=== PATIENT | male | born 1945 | race Caucasian/White ===

== ENCOUNTER 2019-03-18 | Emergency (ER) | payer MEDICARE, OTHER ==
[~2019-03-18] MED LIST: AMLODIPINE5 MG PO; DIDN'T BRING MEDS; LASIX 40 MG40 MG/TAB PO; LEVOTHYROXIN50 MCG PO; LISINOPRIL10 MG PO; METHADONE10 M1 PO; SENNA-TABS8.6 MG PO; SW OMEPRAZOLE20 MG PO; ZYLOPRIM300 MG PO
--- NOTE | 2019-03-18 14:35 | NUR ---
PATIENT TO ROOM VIA WHEELCHIAR. ASSISTED ONTO STRETCHER.
--- NOTE | 2019-03-18 14:50 | NUR ---
PATIENT REPORTS [facility]. NO REDNESS OR ECCHYMOSIS NOTED. ABRASION NOTED TO RIGHT KNEE. PATIENT ALERT AND ORIENTED X3.
--- NOTE | 2019-03-18 15:30 | NUR ---
IV SITE STARTED TO LFA #20, BLOOD AND BLOOD CULTURES OBTAINED. NOTED TO HAVE AREA OF MACERATED SKIN TO PLANTAR OF LEFT FOOT AND OPEN WOUND TO LEFT FOOT. WOUND CULTURE OBTAINED. LAB AT BEDSIDE TO COLLECT SECOND SET OF BLOOD CULTURES.
[2019-03-18 16:05] LABS: HEMATOCRIT 33.1 % (39.0-50.0); HEMOGLOBIN 11.3 g/dl (14.0-18.0); IMMATURE GRANULOCYTES 0.2 % (0.0-5.0); MEAN CELL VOLUME 90.7 fL CALC (80.0-100.0); MEAN CORPUSCULAR HGB CONC 34.1 g/L CALC (32.0-36.0); NEUT# 7.33 thou/uL (1.82-7.42); RED BLOOD COUNT 3.65 mill/uL (4.70-6.10); RED CELL DISTRI WIDTH 12.3 % (11.5-15.5)
--- NOTE | 2019-03-18 16:10 | NUR ---
PATIENT RETURNS FROM XRAY IN STABLE CONDITION.
[2019-03-18] MEDS ORDERED: LIPITOR20 MG PO (16:20)
[2019-03-18] MEDS ORDERED: GENTEAL TEARS M1 SO1 OU (16:21)
[2019-03-18] MEDS ORDERED: DIPHENHYDRAM25 MG PO (16:22)
[2019-03-18] MEDS ORDERED: [UNRECOGNIZED DRUG - OTHER] PO (16:23)
[2019-03-18] MEDS ORDERED: GABAPENTIN100 MG PO (16:24)
[2019-03-18] MEDS ORDERED: FUROSEMIDE20 MG PO (16:24)
[2019-03-18] MEDS ORDERED: GLIPIZIDE5 MG PO (16:24)
[2019-03-18] MEDS ORDERED: NOVOLOG100 UNIT/M SC (16:25)
[2019-03-18] MEDS ORDERED: METFORMIN500 MG PO (16:26)
[2019-03-18] MEDS ORDERED: PROTONIX40 M2 PO (16:27)
[2019-03-18] MEDS ORDERED: K-TABS10 MEQ PO (16:27)
--- NOTE | 2019-03-18 16:28 | NUR ---
MED REC COMPLETED WITH LIST PROVIDED BY PATIENT.
[2019-03-18 16:34] LABS: ALBUMIN 3.7 g/dL (3.2-5.0); ALKALINE PHOSPHATASE 202 u/l (38-126); ANION GAP 17 (6-22 (CALC)); BILIRUBIN, TOTAL 0.7 mg/dL (0.0-1.4); BUN 25 mg/dL (8-23); BUN/CREATININE RATIO 19 (12-20 (CALC)); CARBON DIOXIDE 27 mmol/l (22-30); CHLORIDE 97 mmol/l (95-108); CREATININE 1.3 mg/dL (0.7-1.3); GFR 54 ML/MIN (>=60 (CALC)); GFR FOR AFR.AMER. > 60 ML/MIN (>=60 (CALC)); POTASSIUM 4.8 mmol/l (3.5-5.1); SGOT/AST 30 u/l (19-48); SODIUM 136 mmol/l (137-146); TOTAL PROTEIN 6.5 g/dL (6.3-8.2)
--- NOTE | 2019-03-18 16:41 | NUR ---
CLAKR ZIEGLER AT BEDSIDE TO DISCUSS RESULTS AND PLAN OF CARE.
--- NOTE | 2019-03-18 17:10 | NUR ---
IV FLUIDS AND ANTIBIOTIC INFUSING WELL. NO SIGNS OF DISTRESS NOTED. PATIENT REPORTS NEEDING TO GO HOME TO TAKE CARE OF SICK AT HOME.
--- NOTE | 2019-03-18 18:18 | NUR ---
CLARK ZIEGLER AT BEDSIDE TO DISCUSS RESULTS AND POSSIBLE ADMIT TO TREAT WOUNDS TO LEFT FOOT.
--- NOTE | 2019-03-18 18:54 | NUR ---
REPORT GIVEN TO YOCASTA MCKEON. PATIENT IN STABLE CONDITION. CARE RELINQUISHED.
--- NOTE | 2019-03-18 19:30 | NUR ---
XRAY DONE AT BEDSIDE. PT TO BE ADMITTED. PT OKAY WITH ADMIT.
--- NOTE | 2019-03-18 20:10 | NUR ---
MYRNAAR SENT TO M/S
--- NOTE | 2019-03-18 20:41 | NUR ---
PT'S REPEAT ACCUCHECK IS 256. PT ASKED FOR MENUSO HE CAN PICK SOMETHING OUT TO EAT. INFORMED PT WE HAVE TURKEY SANDWICH HERE OR HE CAN WAIT UNTIL HE GETS UPSTAIRS THEY USUSALLY HAVE A FROZEN DINNER. PT WANTS TO WAIT.
--- NOTE | 2019-03-18 20:49 | NUR ---
OF PT CALLED UPSET THINKING PT WAS GOING HOME, GAVE PHONE TO PT TO TALK TO HIS .
--- NOTE | 2019-03-18 21:04 | NUR ---
CALLED TO PATIENT'S ROOM, WHILE HE IS ON THE PHONE WITH HIS . STATES HE NEEDS TO LEAVE AND GO HOME TO TAKE CARE OF HIS AND FEED HIS CAT. STATES HE WILL RETURN TO BE ADMITTED. AND RN NOTIFIED.
--- NOTE | 2019-03-18 21:10 | NUR ---
ALEX COMPLETED NO REACTION. PT STILL INSIST ON LEAVING AMA. PT STATES HE WILL COME BACK LATER OR TOMORROW. INFORMED PT I HAVE TO GET PAPERWORK FOR HIM TO SIGN STATING HE IS LEAVING AGAINST MEDICAL ADVICE AND THE WORSE POSSIBLE OUTCOME FROM LEAVING IS .
--- NOTE | 2019-03-18 21:22 | NUR ---
PT WOULD NOT WAIT TO SIGN AMA FORM.
== END 2019-03-18 21:22 | disposition left against medical advice (07) ==
DX: E11.621 Type 2 diabetes mellitus with foot ulcer (principal); L97.429 Non-pressure chronic ulcer of left heel and midfoot with unspecified severity; E11.65 Type 2 diabetes mellitus with hyperglycemia; S49.91XA Unspecified injury of right shoulder and upper arm, initial encounter; S89.91XA Unspecified injury of right lower leg, initial encounter; S79.911A Unspecified injury of right hip, initial encounter; S09.93XA Unspecified injury of face, initial encounter; E87.2 Acidosis; I10 Essential (primary) hypertension; E03.9 Hypothyroidism, unspecified; M35.3 Polymyalgia rheumatica; W01.0XXA Fall on same level from slipping, tripping and stumbling without subsequent striking against object, initial encounter; Z79.4 Long term (current) use of insulin; Z91.81 History of falling; Z91.19 Patient's noncompliance with other medical treatment and regimen

== ENCOUNTER 2019-03-23 | Emergency (ER) | payer MEDICARE, OTHER ==
[~2019-03-23] MED LIST changes: +DIPHENHYDRAM25 MG PO; +FUROSEMIDE20 MG PO; +GABAPENTIN100 MG PO; +GENTEAL TEARS M1 SO1 OU; +GLIPIZIDE5 MG PO; +K-TABS10 MEQ PO; +LIPITOR20 MG PO; +METFORMIN500 MG PO; +NOVOLOG100 UNIT/M SC; +PROTONIX40 M2 PO; +[UNRECOGNIZED DRUG - OTHER] PO
[2019-03-23 13:54] LABS: HEMATOCRIT 33.3 % (39.0-50.0); HEMOGLOBIN 11.2 g/dl (14.0-18.0); IMMATURE GRANULOCYTES 0.7 % (0.0-5.0); MEAN CORPUSCULAR HGB 30.6 pG CALC (26.0-32.0); MEAN CORPUSCULAR HGB CONC 33.6 g/L CALC (32.0-36.0); NEUT# 5.95 thou/uL (1.82-7.42); RED BLOOD COUNT 3.66 mill/uL (4.70-6.10); RED CELL DISTRI WIDTH 12.2 % (11.5-15.5)
[2019-03-23 13:59] LABS: ANION GAP 15 (6-22 (CALC)); BUN 20 mg/dL (8-23); BUN/CREATININE RATIO 16 (12-20 (CALC)); CARBON DIOXIDE 28 mmol/l (22-30); CHLORIDE 99 mmol/l (95-108); CREATININE 1.2 mg/dL (0.7-1.3); GFR 59 ML/MIN (>=60 (CALC)); GFR FOR AFR.AMER. > 60 ML/MIN (>=60 (CALC)); POTASSIUM 4.5 mmol/l (3.5-5.1); SODIUM 138 mmol/l (137-146)
[2019-03-23] MEDS ORDERED: CEPHALEXIN500 M1 PO (15:41)
--- NOTE | 2019-03-25 11:45 | NUR ---
ATTEMPTS TO CONTACT PATIENT HAVE WENT UNANSWERE ON 03/25/19. BOTH NUMBERS ON FILE WENT TO [facility] WITH NO ANSWERING SERVICE. WE WILL DC KEFLEX AND CALL IN BACTRIM DS BID X 5 DAYS TO THE PATIENTS PHARMACY OF CHOICE (NOT LISTED IN [facility]) WILL RE-ATTEMPT ON Wednesday03/26/19 AND SEND CERTIFIED LETTER AND RX IN NO RESPONSE.
--- NOTE | 2019-03-27 14:12 | NUR ---
Certified letter with prescription was sent to patient's residence.
== END 2019-03-23 15:53 | disposition home or self-care (01) ==
PROVIDERS: Family Medicine
DX: L03.116 Cellulitis of left lower limb (principal); S91.312A Laceration without foreign body, left foot, initial encounter; E11.621 Type 2 diabetes mellitus with foot ulcer; L97.429 Non-pressure chronic ulcer of left heel and midfoot with unspecified severity; I10 Essential (primary) hypertension; M10.9 Gout, unspecified; E03.9 Hypothyroidism, unspecified; M35.3 Polymyalgia rheumatica; W19.XXXA Unspecified fall, initial encounter; Z79.4 Long term (current) use of insulin; Z91.81 History of falling; B95.62 Methicillin resistant Staphylococcus aureus infection as the cause of diseases classified elsewhere

== ENCOUNTER 2019-05-02 | Emergency (ER) | payer MEDICARE, OTHER ==
[~2019-05-02] MED LIST changes: +CEPHALEXIN500 M1 PO
[2019-05-02 17:20] LABS: HEMATOCRIT 32.8 % (39.0-50.0); HEMOGLOBIN 11.3 g/dl (14.0-18.0); IMMATURE GRANULOCYTES 0.2 % (0.0-5.0); MEAN CELL VOLUME 89.4 fL CALC (80.0-100.0); MEAN CORPUSCULAR HGB 30.8 pG CALC (26.0-32.0); MEAN CORPUSCULAR HGB CONC 34.5 g/dL CAL (32.0-36.0); NEUT# 5.93 thou/uL (1.82-7.42); RED BLOOD COUNT 3.67 mill/uL (4.70-6.10); RED CELL DISTRI WIDTH 12.6 % (11.5-15.5)
[2019-05-02 17:31] LABS: ALBUMIN 4.2 g/dL (3.2-5.0); ALKALINE PHOSPHATASE 135 u/l (38-126); ANION GAP 15 (6-22 (CALC)); BILIRUBIN, TOTAL 0.6 mg/dL (0.0-1.4); BUN 27 mg/dL (8-23); BUN/CREATININE RATIO 20 (12-20 (CALC)); CARBON DIOXIDE 26 mmol/l (22-30); CHLORIDE 101 mmol/l (95-108); CREATININE 1.3 mg/dL (0.7-1.3); GFR 54 ML/MIN (>=60 (CALC)); GFR FOR AFR.AMER. > 60 ML/MIN (>=60 (CALC)); POTASSIUM 3.9 mmol/l (3.5-5.1); SGOT/AST 47 u/l (19-48); SODIUM 138 mmol/l (137-146); TOTAL PROTEIN 6.9 g/dL (6.3-8.2)
[2019-05-02] MEDS ORDERED: CEPHALEXIN500 M1 PO (18:05)
== END 2019-05-02 18:40 | disposition home or self-care (01) | DRG 638 ==
PROVIDERS: Emergency Medicine
DX: E11.621 Type 2 diabetes mellitus with foot ulcer (principal); E11.65 Type 2 diabetes mellitus with hyperglycemia; L97.429 Non-pressure chronic ulcer of left heel and midfoot with unspecified severity; I10 Essential (primary) hypertension; E03.9 Hypothyroidism, unspecified; M35.3 Polymyalgia rheumatica; Z79.4 Long term (current) use of insulin

== ENCOUNTER 2019-07-01 22:45 | Observation (INO) | payer MEDICARE, OTHER ==
[~2019-07-01] VITALS: Ht 177.8 cm; Wt 97.0 kg
--- NOTE | 2019-07-01 22:46 | NUR ---
BY EMS TO ROOM
--- NOTE | 2019-07-01 22:47 | NUR ---
PT. TO ROOM 9 VIA EMS WITH C/O BG 26 UPON EMS ARRIVAL TO HOME. EMS STATES THEY ADMINISTERED D10 AFTER EMS RECHECK ACCU CHECK 206. PT. IS AWAKE ALERT AND ORIENTED, SKIN WARM AND DRY TO TOUCH, COLOR WNL, RESP. EVEN AND UNLABORED.
--- NOTE | 2019-07-01 23:18 | NUR ---
ACCU CHECK 36 CR LOW MD AWARE.
--- NOTE | 2019-07-01 23:25 | NUR ---
I AMP. D 50 GIVEN PER MD ORDER. D10 STARTED AT 250 ML HR.
[2019-07-01 23:35] LABS: HEMATOCRIT 38.1 % (39.0-50.0); HEMOGLOBIN 12.9 g/dl (14.0-18.0); IMMATURE GRANULOCYTES 0.4 % (0.0-5.0); MEAN CELL VOLUME 88.2 fL CALC (80.0-100.0); MEAN CORPUSCULAR HGB 29.9 pG CALC (26.0-32.0); MEAN CORPUSCULAR HGB CONC 33.9 g/dL CAL (32.0-36.0); NEUT# 13.94 thou/uL (1.82-7.42); RED BLOOD COUNT 4.32 mill/uL (4.70-6.10); RED CELL DISTRI WIDTH 12.8 % (11.5-15.5)
[2019-07-01 23:51] LABS: ALKALINE PHOSPHATASE 98 u/l (38-126); AMYLASE 96 u/l (30-110); ANION GAP 13 (6-22 (CALC)); BILIRUBIN, TOTAL 0.6 mg/dL (0.0-1.4); BUN 12 mg/dL (8-23); BUN/CREATININE RATIO 15 (12-20 (CALC)); CARBON DIOXIDE 25 mmol/l (22-30); CHLORIDE 106 mmol/l (95-108); CREATININE 0.8 mg/dL (0.7-1.3); GFR > 60 ML/MIN (>=60 (CALC)); GFR FOR AFR.AMER. > 60 ML/MIN (>=60 (CALC)); LIPASE 373 u/l (23-300); POTASSIUM 3.3 mmol/l (3.5-5.1); SGOT/AST 53 u/l (19-48); SODIUM 140 mmol/l (137-146); TOTAL PROTEIN 6.8 g/dL (6.3-8.2)
[2019-07-02] VITALS (16 sets, daily range): BP systolic 132–204; BP diastolic 55–107
[2019-07-02 00:03] LABS: MYOGLOBIN 107 ng/mL (0 - 121)
--- NOTE | 2019-07-02 00:03 | NUR ---
ACCU CHECK RECHECK 146 MD AWARE.
--- NOTE | 2019-07-02 00:55 | NUR ---
PT. GIVEN TURKEY DINNER.
--- NOTE | 2019-07-02 01:03 | NUR ---
PT. TOOK 1 BITE OF TURKEY DINNER STATING, " I DON'T LIKE IT." "I DON'T WANT TO EAT IT."
--- NOTE | 2019-07-02 01:37 | NUR ---
PO POTASSIUM GIVEN PER MD ORDER.
--- NOTE | 2019-07-02 01:44 | NUR ---
PT. GIVEN BOWEL OF CHICKEN NOODLE SOUP, AND INSTRUCTED WHY HE MUST EAT MOST OF IT, VERBALIZED UNDERSTANDING.
--- NOTE | 2019-07-02 02:07 | NUR ---
PT. ATE 100% OF HIS CHICKEN NOODLE SOUP.
--- NOTE | 2019-07-02 02:42 | NUR ---
Admission Note Report Given to: ANUP RUST Transported by: Wheelchair X Stretcher Transported with: X Nurse Transporter X Patent IV O2 X Loan Collector Location: X ICU MS2
--- NOTE | 2019-07-02 02:45 | NUR ---
RECEIVED REPORT FROM NÉSTOR RUST.
--- NOTE | 2019-07-02 02:45 | NUR ---
PT. TAKEN TO ICU VIA STRETCHER, IVF INFUSING WELL, NO REDNESS OR EDEMA NOTED.
--- NOTE | 2019-07-02 02:55 | NUR ---
RECEIVED PT TO ICU #4 VIA STRETCHER. PT AMB WITH ASSIST TO BED. PT REFUSED TO TAKE SHORTS AND SHOES OFF. PT AAOX3.
--- NOTE | 2019-07-02 04:15 | NUR ---
PT RELATED HE HAS A WOUND TO THE BOTTOM OF HIS L FOOT THAT [facility]. PT REMOVED SHOE, PICTURE TAKEN OF WOUND.
--- NOTE | 2019-07-02 04:40 | NUR ---
LAB AT BEDSIDE. URINE SENT WITH LAB.
[2019-07-02 04:58] LABS: URINE BILIRUBIN - DIPSTICK NEGATIVE (NEGATIVE); URINE BLOOD DIPSTICK SMALL (NEGATIVE); URINE COLOR YELLOW; URINE GLUCOSE - DIPSTICK NEGATIVE (NEGATIVE); URINE KETONE NEGATIVE (NEGATIVE); URINE LEUK ESTERASE NEGATIVE (NEGATIVE); URINE PROTEIN - DIPSTICK 100 mg/dL (NEG-TRACE); URINE SPECIFIC GRAVITY 1.015; URINE UROBILINOGEN - DIPSTICK 0.2 E.U./dL (0.2)
--- NOTE | 2019-07-02 05:00 | NUR ---
PT REFUSED ELSIE WILSON.
[2019-07-02 05:01] LABS: HEMATOCRIT 34.1 % (39.0-50.0); HEMOGLOBIN 11.4 g/dl (14.0-18.0); IMMATURE GRANULOCYTES 0.2 % (0.0-5.0); MEAN CELL VOLUME 88.6 fL CALC (80.0-100.0); MEAN CORPUSCULAR HGB 29.6 pG CALC (26.0-32.0); MEAN CORPUSCULAR HGB CONC 33.4 g/dL CAL (32.0-36.0); NEUT# 7.06 thou/uL (1.82-7.42); RED BLOOD COUNT 3.85 mill/uL (4.70-6.10)
[2019-07-02 05:06] LABS: URINE NITRITE - DIPSTICK NEGATIVE (Negative)
[2019-07-02 05:08] LABS: ALBUMIN 3.4 g/dL (3.2-5.0); ALKALINE PHOSPHATASE 88 u/l (38-126); ANION GAP 10 (6-22 (CALC)); BILIRUBIN, TOTAL 0.5 mg/dL (0.0-1.4); BUN 11 mg/dL (8-23); BUN/CREATININE RATIO 14 (12-20 (CALC)); CARBON DIOXIDE 27 mmol/l (22-30); CHLORIDE 106 mmol/l (95-108); CREATININE 0.8 mg/dL (0.7-1.3); GFR > 60 ML/MIN (>=60 (CALC)); GFR FOR AFR.AMER. > 60 ML/MIN (>=60 (CALC)); POTASSIUM 3.2 mmol/l (3.5-5.1); SGOT/AST 38 u/l (19-48); SODIUM 139 mmol/l (137-146); TOTAL PROTEIN 5.9 g/dL (6.3-8.2)
[2019-07-02 05:08] LABS: URINE BACTERIA FEW hpf; URINE EPITHELIAL CELLS FEW EPI/hpf (0-FEW)
--- NOTE | 2019-07-02 06:00 | NUR ---
PT AAOX3 SKIN WARM AND DRY, ACCUCHECK 70. D10 INFUSING AT 200ML/HR. CALL JOSÉ IN REACH.
--- NOTE | 2019-07-02 06:45 | NUR ---
RECIEVED REPORT FROM YOCASTA HEBERT. ASSUMED PT CARE.
--- NOTE | 2019-07-02 06:55 | NUR ---
REPORT TO MERISSA RUST
--- NOTE | 2019-07-02 07:05 | NUR ---
PT YELLING OUT, PT REMINDED OF CALL LIGHT AND ASKED TO UTILIZE FOR FUTURE REQUEST TO THE COMFORT OF OTHER PTS. PT VERBALIZED UNDERSTANDING. PT ASSISTED WITH URINAL. THEN BACK TO BED. CALL LIGHT IN REACH. WILL MONITOR.
--- NOTE | 2019-07-02 07:30 | NUR ---
DIETARY ON UNIT, BREAKFAST TRAY SET UP, PT REFUSED EGGS. PT ASKED FOR THE EGSS TO BE REMOVED FROM PLATE, REQUEST GRANTED. CALL LIGHT IN REACH.
--- NOTE | 2019-07-02 07:45 | NUR ---
PT ALERT TO PERSON & PLACE, ABLE TO MAKE NEEDS KNOWN, RESPIRATIONS EVEN/UNLABORED, SA02@99%RA, SR ON TELEMETRY, DENIES CP, SOB OR DISTRESS AT THIS TIME. ABDOMEN DISTENDED, NON-TENEDER, LBM 5-17-20. 18G RFA INFUSING D10@200ML/HR, NO S/S OF INFILTRATION OR INFECTION NOTED AT SITE. 18G TO LFA/SL. PT REMAINS ACCUCHECK Q1H ORDERED. DRSG TO L SOLE CDI. CALL LIGHT IN REACH, WILL MONITOR.
--- NOTE | 2019-07-02 10:06 | NUR ---
ASSISTED PT WITH URINAL, 350 CLEAR YELLOW URINE OP. PT ACCU CHECK 200. NOTIFIED CLARK BATISTA. DEXTROSE 10% ON HOLD, CONTINUE ACCU CHECK Q1H. CALL LIGHT IN REACH. WILL MONITOR.
--- NOTE | 2019-07-02 11:40 | NUR ---
DR. HENRY AT BEDSIDE FOR ASSESSMENT AND TO DISCUSS PLAN OF CARE. NEW ORDERS RECIEVED.
--- NOTE | 2019-07-02 12:30 | NUR ---
PT RESTING IN BED, WATCHING TV. ATE 100% OF LUNCH. PT ASSISTED WITH URINAL, VOIDED 250ML URINE. CALL LIGHT IN REACH. WILL MONITOR.
--- NOTE | 2019-07-02 14:00 | NUR ---
PT ASSISTED WITH URINAL, VOIDED. NO S/S OF HYPOGLYCEMIA NOTED AT THIS TIME. CALL LIGHT IN REACH. WILL MONITOR.
--- NOTE | 2019-07-02 16:00 | NUR ---
PT RESTING IN BED WITH EYES CLOSED. NO DISTRESS NOTED AT THIS TIME. REMAINS SR ON TELEMETRY. CALL LIGHT IN REACH. WILL MONITOR.
--- NOTE | 2019-07-02 17:26 | NUR ---
PT UPSET, UNABLE TO USE SHARED BR DUE TO INFECTION CONTROL. ACCU CHECK 157, INSULIN REFUSED. DIETARY ON UNIT DINNER TRAY SET UP.
--- NOTE | 2019-07-02 18:00 | NUR ---
NOTIFIED DR. HENRY OF PT INCREASED B/P 204/97, HR 133.
--- NOTE | 2019-07-02 18:16 | NUR ---
DR. HENRY CALLED BACK WITH NEW ORDERS, SENT TO [facility]
--- NOTE | 2019-07-02 18:45 | NUR ---
RECEIVED REPORT FROM DAPHNIE RUST.
--- NOTE | 2019-07-02 19:05 | NUR ---
RECEIVED PT AAOX3. MEDICATED PER APR. PT RELATED HE WAS UPSET EARLIER, AND THE ROOM IS HOT. TURNED DOWN A/C, OPENED DOOR. REINFORCED WITH PT TO USE CALL LIGHT, FOR ANY NEEDS.
--- NOTE | 2019-07-02 20:00 | NUR ---
PT WATCHING TV, NO DISTRESS NOTED. CALL JOSÉ IN REACH.
--- NOTE | 2019-07-02 21:00 | NUR ---
PT UP TO SIDE OF BED TRYING TO USE URINAL, DROPPED TO FLOOR. URINE CLEANED HOUSEKEEPING AT BEDSIDE REINFORED USE OF CALL LIGHT.
--- NOTE | 2019-07-02 22:00 | NUR ---
PT LYING IN BED WATCHING TV. NO DISTRESS NOTED. NO NEEDS AT THIS TIME. CALL JOSÉ IN REACH.
[2019-07-03] VITALS (11 sets, daily range): BP systolic 149–196; BP diastolic 76–89
--- NOTE | 2019-07-03 | NUR ---
PT TURNED TV BACK ON, RELATED HE COULD NOT SLEEP AT THIS TIME. PO FLUIDS OR FOOD OFFERED, PT REFUSED. NO NEEDS AT THIS TIME. CALL JOSÉ IN REACH.
--- NOTE | 2019-07-03 02:00 | NUR ---
PT WATCHING TV. NO C/O PAIN. NO NEEDS AT THIS TIME. CALL JOSÉ IN REACH.
--- NOTE | 2019-07-03 04:00 | NUR ---
PT AWAKE AND ALERT, ENCOURAGED TO GET SOME SLEEP. NO C/O PAIN OR DISTRESS NOTED. CALL JOSÉ IN REACH.
--- NOTE | 2019-07-03 05:01 | NUR ---
LAB AT BEDSIDE.
[2019-07-03 05:17] LABS: HEMATOCRIT 33.4 % (39.0-50.0); HEMOGLOBIN 11.1 g/dl (14.0-18.0); IMMATURE GRANULOCYTES 0.1 % (0.0-5.0); MEAN CELL VOLUME 90.3 fL CALC (80.0-100.0); MEAN CORPUSCULAR HGB CONC 33.2 g/dL CAL (32.0-36.0); NEUT# 3.72 thou/uL (1.82-7.42); RED BLOOD COUNT 3.7 mill/uL (4.70-6.10); RED CELL DISTRI WIDTH 12.9 % (11.5-15.5)
[2019-07-03 05:24] LABS: ALKALINE PHOSPHATASE 96 u/l (38-126); BILIRUBIN, TOTAL 0.4 mg/dL (0.0-1.4); BUN 15 mg/dL (8-23); BUN/CREATININE RATIO 17 (12-20 (CALC)); CARBON DIOXIDE 28 mmol/l (22-30); CHLORIDE 105 mmol/l (95-108); CREATININE 0.9 mg/dL (0.7-1.3); GFR > 60 ML/MIN (>=60 (CALC)); GFR FOR AFR.AMER. > 60 ML/MIN (>=60 (CALC)); SGOT/AST 36 u/l (19-48); SODIUM 136 mmol/l (137-146); TOTAL PROTEIN 5.4 g/dL (6.3-8.2)
[2019-07-03 05:26] LABS: ANION GAP 7 (6-22 (CALC))
[2019-07-03 05:32] LABS: POTASSIUM 3.9 mmol/l (3.5-5.1)
--- NOTE | 2019-07-03 06:00 | NUR ---
OFFERED TO SET PT UP FOR SELF BATH, PT REFUSED. NO C/O PAIN OR OTHER NEEDS AT THIS TIME. CALL JOSÉ IN REACH.
--- NOTE | 2019-07-03 06:47 | NUR ---
REPORT TO MARA RUST.
--- NOTE | 2019-07-03 07:50 | NUR ---
REPORT RECEIVED FROM NIGHT RN. PT RESTING IN BED. NO DISTRESS NOTED. DENIES SOB. PT STATES HE HAS CHRONIC BACK PAIN AND TAKE PAIN MEDICATION 3 AND 1/2 TIMES A DAY. PHARMACY CALLED TO COMPLETE PATIENT MED REC. DR. DONOHUE TO BE NOTIFIED OF PATIENT HOME PAIN MEDICATION. PT SITTING UP IN BED TO EAT BREAKFAST. WILL CONTINUE TO MONITOR.
--- NOTE | 2019-07-03 08:44 | NUR ---
PT NARCOTIC REPORT RECEIVED FROM PHARMACY. PT HOME RX HYDROCODONE-ACETAMIN 10-[address] DONOHUE NOTIFIED. WILL CONTINUE TO MONITOR.
--- NOTE | 2019-07-03 09:59 | NUR ---
DR. DONOHUE AT BEDSIDE TO ASSESS PT
--- NOTE | 2019-07-03 10:05 | NUR ---
DR. DONOHUE AWARE OF PATIENT HIGH BP. BP MEDICATIONS GIVEN THIS AM. PAIN MEDS GIVEN. WILL CONTINUE TO MONITOR.
--- NOTE | 2019-07-03 10:50 | NUR ---
PT RESTING IN BED. NO DISTRESS NOTED. WILL CONTINUE TO MONITOR.
--- NOTE | 2019-07-03 12:00 | NUR ---
PT SITTING UP IN BED EATING LUNCH. NO DISTRESS NOTED. PT HAS CHRONIC BACK PAIN. PAIN MEDS NOT DUE AT THIS TIME. REPOSITIONED FOR PATIENT COMFORT. PT STATES HE ALWAYS WEARS HIS SHOES IN BED. WILL CONTINUE TO MONITOR.
[2019-07-03] MEDS ORDERED: MAG-OXIDE200 MG PO (13:38)
[2019-07-03] MEDS ORDERED: FINASTERIDE5 MG PO (13:39)
[2019-07-03] MEDS ORDERED: FERR SULFATE325 MG PO (13:39)
[2019-07-03] MEDS ORDERED: ARTIFICIAL TEAR1 SOL (13:40)
[2019-07-03] MEDS ORDERED: K-TABS10 MEQ PO (13:40)
[2019-07-03] MEDS ORDERED: LISINOPRIL20 MG PO (13:41)
[2019-07-03] MEDS ORDERED: VOLTAREN1%GEL TOP (13:42)
[2019-07-03] MEDS ORDERED: METFORMIN HCL500 M2 PO (13:42)
[2019-07-03] MEDS ORDERED: KETOCONAZOLE2 % EX (13:43)
[2019-07-03] MEDS ORDERED: LASIX 40 MG TAB40 MG PO (13:43)
[2019-07-03] MEDS ORDERED: GABAPENTIN100 MG PO (13:45)
[2019-07-03] MEDS ORDERED: [UNRECOGNIZED DRUG - OTHER] (13:45)
[2019-07-03] MEDS ORDERED: NOVOLOG FLEXPEN SC (13:46)
--- NOTE | 2019-07-03 13:56 | NUR ---
DR. DONOHUE NOTIFIED PATIENT HOME MEDICATIONS UPDATE PER PHARMACY.
--- NOTE | 2019-07-03 14:02 | NUR ---
PT RESTING IN BED WATCHING TV. NO DISTRESS NOTED. DENIES SOB AT THIS TIME. WILL CONTINUE TO MONITOR.
--- NOTE | 2019-07-03 15:45 | NUR ---
DR. CONDE AT BEDSIDE TO ASSESS PT. WOUND CULTURE SENT TO LAB. NEW DRESSING APPLIED PER AMAYA BOTELLO. WILL CONTINUE TO MONITOR.
--- NOTE | 2019-07-03 16:10 | NUR ---
PT AMBULATED TO BATHROOM WITH CANE. STEADY GATE. PT EDUCATED ON FALL RISK AND TO CALL BEFORE GETTING OUT OF BED. EDUCATED PT ON HOME HEALTH SERVICES TO HELP PATIENT MANAGE WOUND AND MEDICATION. PT REFUSED. STATED HE DID NOT WANT ANY HOME HEALTH. PT SITTING AT THE EDGE OF THE BED. NO DISTRESS NOTED. WILL CONTINUE TO MONITOR.
--- NOTE | 2019-07-03 18:15 | NUR ---
PT ALERT AND ORIENTED X3. DISCHARGE INSTRUCTION GIVEN TO PATIENT. PT IN STABLE CONDITION. EDUCATED PATIENT ON IMPORTANCE OF CHECKING BLOOD SUGAR WITH MACHINE. EDUCATED PATIENT THAT THE DOCTORS ORDER FOR INSULIN IS 60 UNITS X2 A DAY WITH MEANS. EDUCATED PATIENT ON IMPORTANCE OF TAKING CORRECT DOSE. DEMONSTRATED HOW TO USE FLEX PEN CORRECTLY WITH HOSPITAL TEST FLEX PEN. PT VERBALIZED UNDERSTANDING. EDUCATED PATIENT ON HOW TO TAKE CARE OF LEFT FOOT ULCER. EDUCATED PATIENT TO CALL [facility] TO SCHEDULE FOLLOW UP APPOINMEMT. PT VERBALIZED UNDERSTANDING. ALL BELONGINGS SENT WITH PATIENT. DISCHARGE PAPERWORK SENT WITH PATIENT. CAB TO BE ORDERED.
--- NOTE | 2019-07-03 18:24 | NUR ---
Discharge instructions given. Patient verbalizes understanding of same. Discharged in stable condition via Wheelchair to Home with staff. All belongings sent with pt. PT WAITING FOR CAB IN ER LOBBY.
--- NOTE | 2019-07-05 14:19 | NUR ---
WOUND CX SHOWS KLEBSIELLA PNEUMONIAE. SPOKE WITH PT, REPORTS SOME DISCHARGE AND "OOZING" FROM DIABETIC FOOT ULCER, NO MORE THAN USUAL. PT REPORTS MOST PAIN AND DISCHARGE WHEN CHANGING BANDAGES. OFFERED TO CALL IN ABX FOR PT, HE DECLINED, INSISTING HE ONLY WANTS RXS FROM HIS [facility] FA[facility] CX RESULTS TO DR SAM AT [facility] [phone]
== END 2019-07-03 18:24 | disposition home health service (06) ==
LOC: ED 22:45 → ED-I 07-02 01:55 → ED 07-02 02:16 → ICU 07-02 02:17
PROVIDERS: Emergency Medicine; Nurse Practitioner Family; ADMIT Internal Medicine; ATTEND Internal Medicine
DX: T38.3X1A Poisoning by insulin and oral hypoglycemic [antidiabetic] drugs, accidental (unintentional), initial encounter (principal); E11.649 Type 2 diabetes mellitus with hypoglycemia without coma; E11.621 Type 2 diabetes mellitus with foot ulcer; L97.429 Non-pressure chronic ulcer of left heel and midfoot with unspecified severity; L08.9 Local infection of the skin and subcutaneous tissue, unspecified; I16.0 Hypertensive urgency; I10 Essential (primary) hypertension; E03.9 Hypothyroidism, unspecified; M35.3 Polymyalgia rheumatica; Z86.14 Personal history of Methicillin resistant Staphylococcus aureus infection; Z79.4 Long term (current) use of insulin; Z87.891 Personal history of nicotine dependence; Z11.59 Encounter for screening for other viral diseases
CPT/HCPCS: J1650

== ENCOUNTER 2019-07-05 17:47 | Observation (INO) | payer MEDICARE, OTHER ==
[~2019-07-05] VITALS: Ht 177.8 cm; Wt 91.0 kg
[~2019-07-05 17:47] MED LIST changes: +ARTIFICIAL TEAR1 SOL; +FERR SULFATE325 MG PO; +FINASTERIDE5 MG PO; +KETOCONAZOLE2 % EX; +LASIX 40 MG TAB40 MG PO; +LISINOPRIL20 MG PO; +MAG-OXIDE200 MG PO; +METFORMIN HCL500 M2 PO; +NOVOLOG FLEXPEN SC; +VOLTAREN1%GEL TOP; +[UNRECOGNIZED DRUG - OTHER]
--- NOTE | 2019-07-05 17:47 | NUR ---
PT TO ROOM VIA EMS; AOX3 AT THIS TIME
[2019-07-05 18:19] LABS: HEMATOCRIT 39.6 % (39.0-50.0); HEMOGLOBIN 13.3 g/dl (14.0-18.0); IMMATURE GRANULOCYTES 0.4 % (0.0-5.0); MEAN CELL VOLUME 88.4 fL CALC (80.0-100.0); MEAN CORPUSCULAR HGB 29.7 pG CALC (26.0-32.0); MEAN CORPUSCULAR HGB CONC 33.6 g/dL CAL (32.0-36.0); NEUT# 9.3 thou/uL (1.82-7.42); RED BLOOD COUNT 4.48 mill/uL (4.70-6.10)
[2019-07-05 18:36] LABS: ALKALINE PHOSPHATASE 100 u/l (38-126); BILIRUBIN, TOTAL 0.5 mg/dL (0.0-1.4); BUN 18 mg/dL (8-23); BUN/CREATININE RATIO 21 (12-20 (CALC)); CARBON DIOXIDE 31 mmol/l (22-30); CHLORIDE 100 mmol/l (95-108); CREATININE 0.9 mg/dL (0.7-1.3); ETHYL ALCOHOL 0 mg/dl (0-30); GFR > 60 ML/MIN (>=60 (CALC)); GFR FOR AFR.AMER. > 60 ML/MIN (>=60 (CALC)); LIPASE 215 u/l (23-300); SGOT/AST 61 u/l (19-48); SODIUM 138 mmol/l (137-146)
[2019-07-05 18:38] LABS: ALBUMIN 4.2 g/dL (3.2-5.0); ANION GAP 10 (6-22 (CALC)); TOTAL PROTEIN 7.1 g/dL (6.3-8.2)
--- NOTE | 2019-07-05 18:40 | NUR ---
PT MEDICATED PER MAR PER HTN; MONITORING DEVICES IN PLACE; SITTER AT BEDSIDE; WILL CONTINUE TO MONITOR
--- NOTE | 2019-07-05 18:51 | NUR ---
REPORT TO RAZIA, RN
--- NOTE | 2019-07-05 18:55 | NUR ---
A/OX3 NSR DENIES PAIN OR PROBLEM.
--- NOTE | 2019-07-05 19:29 | NUR ---
PT RETURNS FROM XRAY A/OX3 COOPERATIVE AND PLEASANT GCS REMAINS 15
--- NOTE | 2019-07-05 20:47 | NUR ---
ACCU CK 152 DR Lan INFORMED PT GIVEN PO WATER FOR UA SPEC.
--- NOTE | 2019-07-05 21:24 | NUR ---
PT STILL UNABLE TO VOID-PER PT HE ONLY VOIDS 1X/DAY DR Edyta PIERRE AND IVF AYDEN W/P/D SKIN SR WITHOUT ECTOPY GCS REMAINS 15
--- NOTE | 2019-07-05 22:23 | NUR ---
PHONE REPORT TO NURSE HARRIS ON MS2
--- NOTE | 2019-07-05 22:25 | NUR ---
PT TRANSPORTED TO [facility] IN STABLE CONDITION.PT AMBULATED FROM [place] TO WITH CANE IN SATISFACTORY MANNER.
--- NOTE | 2019-07-05 22:40 | NUR ---
PT ARRIVED TO THE FLOOR VIA STRETCHER, ACCOMPANIED BY ED STAFF. PT ALERT AND ORIENTED, AMBULATED FROM STRETCHER TO THE BED, STAND BY ASSIST. VS OBTAINED AND ASSESSMENT COMPLETED. PT DENIES ANY PAIN OR DISCOMFORT AT THIS TIME. LUNGS SOUND CLEAR. PEDAL PULSES ARE STRONG. DRESSING NOTED TO BOTTOM OF THE LEFT FOOT. PT STATED "I'VE ALREADY CHANGED THE DRESSING TODAY". PT ORIENTED TO ROOM AND CALL JOSÉ SYSTEM. WILL CONTINUE TO MONITOR.
[2019-07-05 22:43] VITALS: BP 192/72
[2019-07-05 23:47] VITALS: BP 176/84
[2019-07-06 00:31] LABS: BARBITURATES NEGATIVE (NEGATIVE); COCAINE NEGATIVE (NEGATIVE); METHADONE NEGATIVE (NEGATIVE); OXCYCODONE NEGATIVE (NEGATIVE); TETRAHYDROCANNABIONOL NEGATIVE (NEGATIVE); TRICYLIC ANTIDEPRESSANTS NEGATIVE (NEGATIVE); URINE BILIRUBIN - DIPSTICK NEGATIVE (NEGATIVE); URINE BLOOD DIPSTICK MODERATE (NEGATIVE); URINE COLOR YELLOW; URINE GLUCOSE - DIPSTICK NEGATIVE (NEGATIVE); URINE KETONE NEGATIVE (NEGATIVE); URINE LEUK ESTERASE NEGATIVE (NEGATIVE); URINE NITRITE - DIPSTICK NEGATIVE (Negative); URINE PH 6.5 (4.5-8.0); URINE PROTEIN - DIPSTICK >=300 mg/dL (NEG-TRACE); URINE SPECIFIC GRAVITY 1.025; URINE UROBILINOGEN - DIPSTICK 0.2 E.U./dL (0.2)
[2019-07-06 00:45] LABS: URINE SQUAMOUS EPITHELIAL CELL FEW EPI/hpf (0-FEW)
--- NOTE | 2019-07-06 03:54 | NUR ---
PT RESTING IN BED. NO S/S OF DISTRESS AT THIS TIME. SAFETY PRECAUTIONS IN PLACE. WILL CONTINUE TO MONITOR.
[2019-07-06 07:26] VITALS: BP 173/75
--- NOTE | 2019-07-06 09:00 | NUR ---
PT IS AWAKE, ALERT, TALKATIVE, CONFUSED. LUNGS CLEAR, RA. NO BM FOR SEVERAL DAYS, BUT PT STATES THAT HE HAS NOT EATEN MUCH. IVF RUNNING, NO HYPOGLYCEMIA PER AM ACCUCHECK. PT IS DIFFICULT TO GET STRAIGHT ANSWER, HE DEVIATES CONSTANTLY FROM CONVERSATION.
--- NOTE | 2019-07-06 13:00 | NUR ---
PT WITHOUT CHANGE SINCE LAST NOTE, SEEN RECLINING IN BED WITHOUT TV, RELAXING.
[2019-07-06 15:15] VITALS: BP 185/90
--- NOTE | 2019-07-06 18:08 | NUR ---
PT REMAINS CONFUSED, HAS DRESSED IN HIS STREET CLOTHES THINKING HE WILL BE DISCHARGED TODAY. PT REORIENTED, CONTINUES TALKATIVE.
[2019-07-06 18:41] VITALS: BP 180/82
--- NOTE | 2019-07-06 20:25 | NUR ---
PHYSICAL ASSESMENT COMPLETE. VS TAKEN BY GLUE SIZE MACHINE OPERATOR @ 8160 ASSESSED, TELEMETRY READING FOR 1999 FROM [place] ANNA LPN/PUBLIC SAF[employer]Y POLICE ASSESSED. PT HEMODYNAMICALLY STABLE. PLAN OF CARE REVIEWED W/ PT. PT VERBALIZES UNDERSTANDING AND DENIES QUESTIONS @ THIS TIME. PT DENIES NEEDS @ THIS TIME. CALL JOSÉ WITHIN REACH, AGREES TO CALL PRN. ITEMS WITHIN REACH. BED LOCKED IN LOW POSITION W/ BEDRAILS UP X2. WILL CON'T TO MONITOR.
--- NOTE | 2019-07-06 20:55 | NUR ---
RABIA W/ DR. TRENT RE: ELEVATED NIPB, SEE RECORD. ORDER FOR HYDRALAZINE RECEIVED, SEE APR.
[2019-07-07 00:33] VITALS: BP 175/82
--- NOTE | 2019-07-07 01:00 | NUR ---
PT APPEARS TO BE RESTING COMFORTABLY, NO APPARENT DISTRESS, RESPIRATIONS REGULAR AND UNLABORED. VS TAKEN BY SENIOR INTERACTIVE PRODUCER @ 0030 ASSESSED. NIBP 175/82mmHg. CALL JOSÉ REMAINS WITHIN REACH. BED REMAINS LOCKED IN LOW POSITION W/ BEDRAILS UP X2. ITEMS WITHIN REACH. WILL CONT' TO MONITOR.
[2019-07-07 03:40] VITALS: BP 177/89
[2019-07-07 05:35] LABS: HEMATOCRIT 37.4 % (39.0-50.0); HEMOGLOBIN 12.3 g/dl (14.0-18.0); MEAN CELL VOLUME 89.9 fL CALC (80.0-100.0); MEAN CORPUSCULAR HGB 29.6 pG CALC (26.0-32.0); MEAN CORPUSCULAR HGB CONC 32.9 g/dL CAL (32.0-36.0); RED BLOOD COUNT 4.16 mill/uL (4.70-6.10); RED CELL DISTRI WIDTH 12.9 % (11.5-15.5)
[2019-07-07 05:54] LABS: ALKALINE PHOSPHATASE 98 u/l (38-126); BILIRUBIN, TOTAL 0.7 mg/dL (0.0-1.4); BUN 18 mg/dL (8-23); BUN/CREATININE RATIO 19 (12-20 (CALC)); CARBON DIOXIDE 28 mmol/l (22-30); CHLORIDE 104 mmol/l (95-108); CREATININE 0.9 mg/dL (0.7-1.3); GFR > 60 ML/MIN (>=60 (CALC)); GFR FOR AFR.AMER. > 60 ML/MIN (>=60 (CALC)); SGOT/AST 59 u/l (19-48); SODIUM 136 mmol/l (137-146); TOTAL PROTEIN 5.7 g/dL (6.3-8.2)
[2019-07-07 05:59] LABS: ALBUMIN 3.3 g/dL (3.2-5.0); ANION GAP 8 (6-22 (CALC)); POTASSIUM 3.7 mmol/l (3.5-5.1)
[2019-07-07 08:20] VITALS: BP 157/82
--- NOTE | 2019-07-07 08:20 | NUR ---
ASSESSMENT IS COMPLETED: IV SITE IS FREE FROM REDNESS OR EDEMA. HR IS REG,PULSES ARE STRONG X4, ABD IS SOFT WITH ACTIVE BS. BREATH SOUNDS ARE CLEAR BILATERALLY, TELE MONITOR IN PLACE. CONTINUE TO OSBERVE AND MONITOR.
[2019-07-07 09:13] VITALS: BP 157/82
[2019-07-07] MEDS ORDERED: LANTUS SOL100 UNIT/M SC (11:59)
--- NOTE | 2019-07-07 12:00 | NUR ---
PT HAS BEEN RELAXING IN BED WITH NO DISTRESS NOTED. IV SITE IS FREE FROM REDNESS OR EDEMA.
--- NOTE | 2019-07-07 15:30 | NUR ---
PT IV SITE DISCONTINUED CATHETER INTACT. NO REDNESS OR EDEMA. CASE MANAGEMENT IN TO VISIT WITH PT. EXPLAINED RE: HOME HEALTH AND MEDICATIONS. TOMORROW. INSISTED THAT MEDS WERE FREE FROM [facility] .
--- NOTE | 2019-07-07 16:00 | NUR ---
WAITING FOR A [facility] CAB EXPLAINED THAT " CAN'T LEAVE YOU HERE UNTIL CAB COMES., RESPONSIBLE FOR YOU UNTIL WE PUT U IN THE CAR" PT LAUGHED SAID "OK"
--- NOTE | 2019-07-07 16:06 | NUR ---
PT SENT HOME BY [facility] ALL RX WILL BE BROUGHT WITH HOME HEALTH NURSE.ALL BELONGINGS AND DISCHARGE INSTRUCTIONS GIVEN TO HOSPITAL. CONTINUE TO OSBERVE AND MONITOR.
--- NOTE | 2019-07-07 16:15 | NUR ---
Discharge instructions given. Patient verbalizes understanding of same. Discharged in stable condition via Wheelchair to Home with family. All belongings sent with pt.
== END 2019-07-07 15:56 ==
LOC: ED 17:47 → ED-I 18:21 → ED 21:20 → MS2 21:21
PROVIDERS: Family Medicine; Nurse Practitioner Family; ADMIT Internal Medicine; ATTEND Internal Medicine
DX: T38.3X1A Poisoning by insulin and oral hypoglycemic [antidiabetic] drugs, accidental (unintentional), initial encounter (principal); E11.649 Type 2 diabetes mellitus with hypoglycemia without coma; G93.41 Metabolic encephalopathy; E87.6 Hypokalemia; M25.571 Pain in right ankle and joints of right foot; I10 Essential (primary) hypertension; E03.9 Hypothyroidism, unspecified; W07.XXXA Fall from chair, initial encounter; Y92.009 Unspecified place in unspecified non-institutional (private) residence as the place of occurrence of the external cause; Z79.4 Long term (current) use of insulin; Z87.891 Personal history of nicotine dependence; Z20.828 Contact with and (suspected) exposure to other viral communicable diseases
CPT/HCPCS: G0378; J1650